=== PATIENT | male | born 1985 | race Two or more races ===

== ENCOUNTER 2016-05-22 12:49 | Inpatient (IN) | payer MEDICAID ==
[~2016-05-22] VITALS: Ht 172.7 cm; Wt 122.6 kg
[2016-05-22] MEDS ORDERED: SODIUM CHLORIDE 0.9% 1,000 ML IV ONE (13:11)
[2016-05-22] MEDS ORDERED: LORazepam 2MG/ML-1ML VIAL IV ONE (13:15)
[2016-05-22] MEDS ORDERED: KETOROLAC TROMETH 60MG/2ML VIAL IM ONE (13:15)
[2016-05-22 14:01] LABS: Basophils # (auto) 0.1 uL; Basophils % (auto) 0.5 % (0.0-2.0); Eosinophils # (auto) 0.1 uL; Eosinophils % (auto) 0.5 % (0.0-7.0); Hematocrit 43.6 % (41.0-53.0); Hemoglobin 15.1 g/dL (13.5-17.5); Lymphocytes # (auto) 2.4 uL; Lymphocytes % (auto) 12.9 % (10.0-50.0); Mean Corpuscular Hemoglobin 30.3 pg (28.0-32.0); Mean Corpuscular Hgb Conc. 34.7 g/dL (32.0-36.0); Mean Corpuscular Volume 87.3 fL (80.0-100.0); Mean Platelet Volume 7.5 fL (7.4-10.4); Monocytes % (auto) 5.5 % (0.0-12.0); Neutrophils # (auto) 14.9 uL; Neutrophils % (auto) 80.6 % (37.0-80.0); Platelet Count (auto) 470 10^3/uL (140-450); Red Cell Distribution Width 12.1 % (11.6-16.0); White Blood Cell 18.5 10^3/uL (4.4-10.8)
[2016-05-22 14:17] LABS: Albumin 4.1 g/dL (3.4-5.0); Alkaline Phosphatase 91 U/L (45-117); Anion Gap 13 (5-15); Aspartate Aminotransferase 34 U/L (15-37); BUN/Creatinine Ratio 13.6; Bilirubin, Total 0.2 mg/dL (0.2-1.0); Blood Urea Nitrogen 12 mg/dL (7-18); Calcium 9.1 mg/dL (8.5-10.1); Carbon Dioxide 22 mmol/L (21-32); Chloride 102 mmol/L (98-107); GFR African American 133 mL/min; GFR Non-African American 110 mL/min; Glucose 112 mg/dL (74-106); Magnesium 2.7 mg/dL (1.6-2.6); Potassium 3.7 mmol/L (3.5-5.1); Sodium 137 mmol/L (136-145); Total Protein 7.9 g/dL (6.4-8.2)
[2016-05-22] MEDS ORDERED: HYDROmorphone HCL 2 MG/ML VL IV ONE (14:45)
[2016-05-22] MEDS ORDERED: ONDANSETRON HCL 4 MG/2 ML VIAL IV ONE (14:45)
[2016-05-22] MEDS ORDERED: cefTRIAXone 1GM/50ML D5W 50 ML IV ONE (16:00)
[2016-05-22] MEDS: SODIUM CHLORIDE 0.9% 1,000 ML IV SCH ×2 (16:16→22:15)
[2016-05-22] MEDS ORDERED: LEVETIRACETAM 500 MG TAB PO ONE (16:30)
[2016-05-22] MEDS ORDERED: MORPHINE SULF INJ 2 MG/ML SYRINGE 1ML IV PRN (16:30)
[2016-05-22] MEDS ORDERED: LACTULOSE 20Gm/30ML SOLN PO PRN (16:30)
[2016-05-22] MEDS ORDERED: ACETAMINOPHEN 500 MG TAB PO PRN (16:30)
[2016-05-22] MEDS ORDERED: LORazepam 2MG/ML-1ML VIAL IV PRN ×2 (16:30→18:15)
[2016-05-22] MEDS ORDERED: NITROGLYCERIN 0.4 MG SL TAB SL PRN (16:30)
[2016-05-22] MEDS ORDERED: PROMETHAZINE HCL 25 MG/ML 1ML IV PRN (16:30)
[2016-05-22] MEDS: MORPHINE SULF INJ 2 MG/ML SYRINGE 1ML IV PRN ×3 (17:02→23:28)
[2016-05-22 17:17] LABS: REFLEX LACTIC ACID YES OR NO YES
[2016-05-22 17:24] LABS: Urine Bilirubin Negative (Negative); Urine Blood Negative /uL (Negative); Urine Color Yellow (Yellow); Urine Glucose Normal (Normal); Urine Ketone Negative (Negative); Urine Nitrite Negative (Negative); Urine RBC <1 /hpf (0 - 3); Urine Urobilinogen Normal (Negative); Urine pH 5.5 (5.0-8.0)
[2016-05-22] MEDS: LORazepam 0.5 MG TAB PO PRN (20:55)
[2016-05-22] MEDS: LEVETIRACETAM 500 MG TAB PO SCH (22:29)
[2016-05-22 22:40] VITALS: BP 150/91
[2016-05-22] MEDS: TEMAZEPAM 15 MG CAP PO PRN (23:28)
[2016-05-23] MEDS: LORazepam 0.5 MG TAB PO PRN ×3 (04:23→22:48)
[2016-05-23] MEDS: HYDROcodone-ACET 5/325MG TAB PO PRN (04:24)
[2016-05-23 04:58] VITALS: BP 138/83
[2016-05-23 06:25] LABS: Basophils # (auto) 0 uL; Basophils % (auto) 0.2 % (0.0-2.0); Eosinophils # (auto) 0 uL; Eosinophils % (auto) 0.1 % (0.0-7.0); Hematocrit 39.5 % (41.0-53.0); Hemoglobin 13.5 g/dL (13.5-17.5); Lymphocytes # (auto) 1.6 uL; Lymphocytes % (auto) 13.5 % (10.0-50.0); Mean Corpuscular Hemoglobin 29.9 pg (28.0-32.0); Mean Corpuscular Hgb Conc. 34.1 g/dL (32.0-36.0); Mean Corpuscular Volume 87.6 fL (80.0-100.0); Mean Platelet Volume 7.7 fL (7.4-10.4); Monocytes # (auto) 1.2 uL; Monocytes % (auto) 10.1 % (0.0-12.0); Neutrophils # (auto) 9.1 uL; Neutrophils % (auto) 76.1 % (37.0-80.0); Platelet Count (auto) 384 10^3/uL (140-450); Red Cell Distribution Width 12.2 % (11.6-16.0); White Blood Cell 11.9 10^3/uL (4.4-10.8)
[2016-05-23 06:45] LABS: Potassium 4.1 mmol/L (3.5-5.1)
[2016-05-23 06:50] LABS: INR 1.05 (0.9-1.15); Partial Thromboplastin Time 30.1 sec (22.64-33.71); Prothrombin Time 10.8 sec (9.37-12.3)
[2016-05-23 06:52] LABS: Albumin 3.9 g/dL (3.4-5.0); BUN/Creatinine Ratio 8.2; Bilirubin, Total 0.4 mg/dL (0.2-1.0); Calcium 8.6 mg/dL (8.5-10.1); Total Protein 7.7 g/dL (6.4-8.2)
[2016-05-23] MEDS: MORPHINE SULF INJ 2 MG/ML SYRINGE 1ML IV PRN ×3 (08:56→20:40)
[2016-05-23 09:00] VITALS: BP 108/62
[2016-05-23] MEDS: LEVETIRACETAM 500 MG TAB PO SCH ×2 (10:14→22:48)
[2016-05-23] MEDS ORDERED: ENOXAPARIN SOD 40 MG/0.4 ML SYRINGE SC ONE (10:30)
[2016-05-23 13:00] VITALS: BP 134/106
[2016-05-23 16:33] VITALS: BP 132/89
[2016-05-23] MEDS: SODIUM CHLORIDE 0.9% 1,000 ML IV SCH (19:06)
[2016-05-23 20:00] VITALS: BP 157/95
[2016-05-23 21:44] VITALS: BP 157/95
[2016-05-23] MEDS: TEMAZEPAM 15 MG CAP PO PRN (22:58)
[2016-05-24] MEDS: MORPHINE SULF INJ 2 MG/ML SYRINGE 1ML IV PRN ×5 (00:58→19:17)
[2016-05-24 05:00] VITALS: BP 127/92
[2016-05-24] MEDS: LORazepam 0.5 MG TAB PO PRN ×2 (05:55→17:05)
[2016-05-24 08:46] VITALS: BP 149/84
[2016-05-24] MEDS: HYDROcodone-ACET 5/325MG TAB PO PRN ×2 (09:21→16:58)
[2016-05-24] MEDS: SODIUM CHLORIDE 0.9% 1,000 ML IV SCH ×2 (09:21→21:55)
[2016-05-24] MEDS: LEVETIRACETAM 500 MG TAB PO SCH ×2 (09:21→21:55)
[2016-05-24] MEDS ORDERED: ENOXAPARIN SOD 40 MG/0.4 ML SYRINGE SC SCH (10:00)
[2016-05-24 13:00] VITALS: BP 126/73
[2016-05-24 17:00] VITALS: BP 155/104
[2016-05-24 22:00] VITALS: BP 126/86
[2016-05-25] MEDS: MORPHINE SULF INJ 2 MG/ML SYRINGE 1ML IV PRN ×3 (00:25→09:39)
[2016-05-25 05:32] VITALS: BP 133/89
[2016-05-25 08:56] VITALS: BP 139/91
[2016-05-25] MEDS: LEVETIRACETAM 500 MG TAB PO SCH ×2 (09:38→21:48)
[2016-05-25] MEDS: LORazepam 0.5 MG TAB PO PRN ×2 (09:48→15:47)
[2016-05-25] MEDS ORDERED: amLODIPine BESYLATE 5 MG TAB PO SCH (10:00)
[2016-05-25 12:38] VITALS: BP 138/97
[2016-05-25] MEDS: MORPHINE SULFATE 4 MG/ML SYRG IV PRN ×3 (13:50→19:56)
[2016-05-25] MEDS: HYDROcodone-ACET 5/325MG TAB PO PRN ×2 (15:43→21:49)
[2016-05-25 17:00] VITALS: BP 132/82
[2016-05-25 21:43] VITALS: BP 131/72
[2016-05-25] MEDS: TEMAZEPAM 15 MG CAP PO PRN (21:48)
[2016-05-26 04:47] VITALS: BP 134/91
[2016-05-26 09:00] VITALS: BP 139/98
[2016-05-26] MEDS: LEVETIRACETAM 500 MG TAB PO SCH ×2 (09:39→21:55)
[2016-05-26 13:00] VITALS: BP 148/96
[2016-05-26] MEDS: MORPHINE SULFATE 4 MG/ML SYRG IV PRN ×3 (13:52→23:40)
[2016-05-26] MEDS: HYDROcodone-ACET 5/325MG TAB PO PRN (15:46)
[2016-05-26 16:58] VITALS: BP 147/79
[2016-05-26 21:38] VITALS: BP 140/93
[2016-05-26] MEDS: oxyCODONE ER 10 MG TAB PO SCH (21:56)
[2016-05-26] MEDS: SENNA 8.6 MG TAB PO SCH (21:56)
[2016-05-27 05:09] VITALS: BP 138/95
[2016-05-27 09:00] VITALS: BP 125/105
[2016-05-27] MEDS: LEVETIRACETAM 500 MG TAB PO SCH ×2 (09:03→21:48)
[2016-05-27] MEDS: MORPHINE SULFATE 4 MG/ML SYRG IV PRN ×3 (09:04→18:25)
[2016-05-27] MEDS: oxyCODONE ER 10 MG TAB PO SCH ×2 (11:01→21:48)
[2016-05-27] MEDS: LORazepam 0.5 MG TAB PO PRN (11:06)
[2016-05-27 13:00] VITALS: BP 133/103
[2016-05-27 17:01] VITALS: BP 126/74
[2016-05-27] MEDS: SENNA 8.6 MG TAB PO SCH (21:48)
[2016-05-27 22:19] VITALS: BP 139/104
[2016-05-28] MEDS: MORPHINE SULFATE 4 MG/ML SYRG IV PRN ×2 (05:02→08:19)
[2016-05-28 05:11] VITALS: BP 132/88
[2016-05-28 07:55] VITALS: BP 138/86
[2016-05-28 09:00] VITALS: BP 138/86
[2016-05-28] MEDS: LEVETIRACETAM 500 MG TAB PO SCH (10:25)
[2016-05-28] MEDS: oxyCODONE ER 10 MG TAB PO SCH (10:26)
[2016-05-28 14:21] VITALS: BP 135/95
== END 2016-05-28 14:46 | disposition home or self-care (01) | DRG 53 ==
LOC: ER 12:52 → TELE 12:53 → TELE-WESTW 19:45
PROVIDERS: ADMIT Internal Medicine; ATTEND Hospitalist
DX: G40.409 Other generalized epilepsy and epileptic syndromes, not intractable, without status epilepticus (principal); S42.91XA Fracture of right shoulder girdle, part unspecified, initial encounter for closed fracture; Z68.41 Body mass index [BMI] 40.0-44.9, adult; D47.3 Essential (hemorrhagic) thrombocythemia; S42.212A Unspecified displaced fracture of surgical neck of left humerus, initial encounter for closed fracture; S42.291A Other displaced fracture of upper end of right humerus, initial encounter for closed fracture; F41.9 Anxiety disorder, unspecified; E66.01 Morbid (severe) obesity due to excess calories; G47.00 Insomnia, unspecified; F17.200 Nicotine dependence, unspecified, uncomplicated; W19.XXXA Unspecified fall, initial encounter; Y99.8 Other external cause status; Y92.89 Other specified places as the place of occurrence of the external cause; Y93.89 Activity, other specified; Z81.8 Family history of other mental and behavioral disorders; Z82.0 Family history of epilepsy and other diseases of the nervous system; Z82.49 Family history of ischemic heart disease and other diseases of the circulatory system; Z83.3 Family history of diabetes mellitus; Z79.899 Other long term (current) drug therapy
CPT/HCPCS: 36415; 70450; 71020; 73030; 73200; 80053; 80061; 80320; 81001; 82550; 83605; 83735; 85025; 85610; 85652; 85730; 87040; 87086; 93005; 95819; 96361; 96365; 96372; 96375; 97001; 99291; G0434; J0696; J1885; J2405

== ENCOUNTER 2016-06-10 17:55 | Emergency (ER) | payer MEDICAID ==
[~2016-06-10] VITALS: Ht 165.1 cm; Wt 116.1 kg
[2016-06-10 18:22] VITALS: BP 120/78
[2016-06-10] MEDS ORDERED: OXYCODONE W/ ACETAMINOPHEN 5/325MG TABLET PO ONE (19:00)
== END 2016-06-10 19:19 | disposition home or self-care (01) ==
LOC: ER 18:00
DX: S42.92XD Fracture of left shoulder girdle, part unspecified, subsequent encounter for fracture with routine healing (principal); S42.91XD Fracture of right shoulder girdle, part unspecified, subsequent encounter for fracture with routine healing; Z76.0 Encounter for issue of repeat prescription

== ENCOUNTER 2016-06-17 21:16 | Emergency (ER) | payer MEDICAID ==
[~2016-06-17] VITALS: Ht 167.6 cm; Wt 115.2 kg
[2016-06-17 21:38] VITALS: BP 134/93
[2016-06-18] MEDS ORDERED: HYDROcodone-ACET 5/325MG TAB PO ONE (00:30)
== END 2016-06-18 00:17 | disposition home or self-care (01) ==
LOC: ER 21:16
DX: S42.92XD Fracture of left shoulder girdle, part unspecified, subsequent encounter for fracture with routine healing (principal); Z76.0 Encounter for issue of repeat prescription
CPT/HCPCS: 73030

== ENCOUNTER 2018-05-03 11:26 | Emergency (ER) | payer MEDICAID ==
[~2018-05-03] VITALS: Ht 165.1 cm; Wt 113.4 kg
[2018-05-03 13:28] LABS: Basophils # (auto) 0.1 uL; Basophils % (auto) 0.6 % (0.0-2.0); Eosinophils # (auto) 0.1 uL; Eosinophils % (auto) 0.7 % (0.0-7.0); Hematocrit 47.8 % (41.0-53.0); Hemoglobin 16.3 g/dL (13.5-17.5); Lymphocytes # (auto) 2.2 uL; Lymphocytes % (auto) 20.2 % (10.0-50.0); Mean Corpuscular Hemoglobin 30.1 pg (28.0-32.0); Mean Corpuscular Hgb Conc. 34.2 g/dL (32.0-36.0); Mean Corpuscular Volume 88.1 fL (80.0-100.0); Monocytes % (auto) 8.8 % (0.0-12.0); Neutrophils # (auto) 7.6 uL; Neutrophils % (auto) 69.7 % (37.0-80.0); Nucleated Red Blood Cells % 0.1 %; Platelet Count (auto) 371 10^3/uL (140-450); Red Blood Cells 5.43 10^6/uL (4.5-5.90); White Blood Cell 10.9 10^3/uL (4.4-10.8)
[2018-05-03 13:56] LABS: Albumin 3.8 g/dL (3.4-5.0); Calcium 8.5 mg/dL (8.5-10.1); Potassium 3.4 mmol/L (3.5-5.1)
[2018-05-03 14:01] LABS: Bilirubin, Total 0.4 mg/dL (0.2-1.0); Total Protein 8.2 g/dL (6.4-8.2)
[2018-05-03 15:19] LABS: Urine WBC None Seen /hpf (0 - 3)
[2018-05-03 15:47] LABS: Urine Bacteria NONE SEEN /hpf (None Seen); Urine Blood Negative /uL (Negative); Urine Specific Gravity 1.003 (1.001-1.035)
[2018-05-03 16:07] VITALS: BP 122/58
== END 2018-05-03 16:20 | disposition home or self-care (01) ==
LOC: ER 11:30
DX: R53.1 Weakness (principal); R63.0 Anorexia; Z87.891 Personal history of nicotine dependence; Z90.49 Acquired absence of other specified parts of digestive tract
CPT/HCPCS: 36415; 80053; 81001; 85025

== ENCOUNTER → 2019-07-27 | Emergency (ER) | payer MEDICAID ==
[~2019-07-27] VITALS: Ht 167.6 cm; Wt 98.4 kg
[2019-07-27 22:18] LABS: Basophils # (auto) 0.1 10 ^3/uL (0-0.2); Basophils % (auto) 0.9 % (0.0-2.0); Eosinophils # (auto) 0.1 10 ^3/uL (0-0.8); Eosinophils % (auto) 0.9 % (0.0-7.0); Hematocrit 44.3 % (41.0-53.0); Hemoglobin 15.1 g/dL (13.5-17.5); Lymphocytes # (auto) 2.4 10 ^3/uL (0.4-5.4); Lymphocytes % (auto) 23.2 % (10.0-50.0); Mean Corpuscular Hemoglobin 29.7 pg (28.0-32.0); Mean Corpuscular Volume 87.4 fL (80.0-100.0); Monocytes # (auto) 0.7 10 ^3/uL (0-1.3); Monocytes % (auto) 6.8 % (0.0-12.0); Neutrophils % (auto) 68.2 % (37.0-80.0); Nucleated Red Blood Cells % 0.1 %; Platelet Count (auto) 343 10^3/uL (140-450); Red Blood Cells 5.07 10^6/uL (4.5-5.90); Red Cell Distribution Width 12.9 % (11.8-14.3); White Blood Cell 10.3 10^3/uL (4.4-10.8)
[2019-07-27 22:28] LABS: Urine Bacteria NONE SEEN /hpf (None Seen); Urine Blood Negative /uL (Negative); Urine Mucus FEW (None Seen); Urine Specific Gravity 1.026 (1.001-1.035); Urine WBC <1 /hpf (0 - 3)
[2019-07-27 22:36] LABS: Calcium 8.3 mg/dL (8.5-10.1); Potassium 3.9 mmol/L (3.5-5.1)
[2019-07-27 22:39] LABS: BUN/Creatinine Ratio 12.1; Bilirubin, Total 0.3 mg/dL (0.2-1.0)
[2019-07-28 00:22] VITALS: BP 123/79
== END | disposition home or self-care (01) ==
LOC: ER 21:18
DX: K42.9 Umbilical hernia without obstruction or gangrene (principal); Z90.49 Acquired absence of other specified parts of digestive tract; Z87.891 Personal history of nicotine dependence
CPT/HCPCS: 36415; 74176; 80053; 81001; 83690; 85025